=== PATIENT | male | born 1990 | race Caucasian/White ===

== ENCOUNTER 2018-06-29 00:08 | Emergency (ER) | payer BC ==
--- NOTE | 2018-06-29 01:43 | EDM.PDOC ---
ED HPI GENERAL MEDICAL PROBLEM - General Chief Complaint: Lower Extremity Injury/Pain Stated Complaint: FOOT PAIN Time Seen by Provider: 06/29/18 01:14 Source of Information: Reports: Patient, RN Notes Reviewed History Limitations: Reports: No Limitations - History of Present Illness INITIAL COMMENTS - FREE TEXT/NARRATIVE: The patient states that he developed pain in his right foot 06/22/2018 , after he came down on it with his left foot while sleeping. He reports pain to the lateral aspect of the foot, both on the dorsal, as well as plantar side. No prior right foot injury. The patient had expressed concern to the triage nurse that his pain may be due to gout, however, on close discussion, the patient does not actually have a history of gout. The patient does not have a PCP. Right Foot Pain Score (Numeric/FACES): 8 - Related Data Allergies Allergy/AdvReac Type Severity Reaction Status Date / Time No Known Allergies Allergy Verified 06/29/18 00:27 Home Meds: Home Meds . [No Known Home Meds] 06/29/18 [History] Past Medical History - Past Surgical History HEENT Surgical History: Reports: Oral Surgery (wisdom teeth extraction) GI Surgical History: Reports: Appendectomy (2012), Hernia, Inguinal (left x 2 - 1995, 2015) Social & Family History - Family History Family Medical History: Noncontributory - Tobacco Use Smoking Status *Q: Current Every Day Smoker Years of Tobacco use: 10 Packs/Tins Daily: 0.5 Packs/Tins Daily Comment: Down from 1.5 ppd - Caffeine Use Caffeine Use: Reports: None - Alcohol Use Alcohol Use History: Yes Alcohol Use Frequency: Rarely - Recreational Drug Use Recreational Drug Use: No - Living Situation & Occupation Living situation: Reports: Single, Alone Occupation: Employed ([employer]) Review of Systems - Review of Systems Review Of Systems: ROS reveals no pertinent complaints other than HPI. ED EXAM, GENERAL - Physical Exam Exam: See Below Exam Limited By: No Limitations General Appearance: Alert, WD/WN, No Apparent Distress Extremities: Other (No visible abnormality to the right foot, when compared to the left, such as swelling, erythema, ecchymosis, or abrasion. Excellent dorsalis pedis and posterior tibialis pulses bilaterally, and both feet are well -perfused. The patient reports considerable tenderness to palpation to the lateral aspect of his foot, both on the dorsal and plantar aspects.) Course - Vital Signs Last Recorded V/S: Last Vital Signs Temp 36.5 C 06/29/18 00:24 Pulse 91 06/29/18 00:24 Resp 18 06/29/18 00:24 BP 137/89 06/29/18 00:24 Pulse Ox 99 06/29/18 00:24 - Re-Assessments/Exams Free Text/Narrative Re-Assessment/Exam: 06/29/18 01:37 4-view radiographs of the right foot appear to be normal. No fractures or dislocations identified. No arthritic changes noted, either. Formal read per the Radiologist pending. The patient's right foot pain appears to be soft tissue related. I am recommending that he wear supportive shoes whenever possible, elevate and ice his foot as much as possible, and take [id number] ibuprofen. I will refer him to a Marine Plumber. The patient is also concerned that a prior inguinal hernia repair may be " coming loose". I will refer him to Dr. Coelho for evaluation. Departure - Departure Time of Disposition: 01:39 Disposition: Home, Self-Care 01 Condition: Good Clinical Impression: Right foot pain - Discharge Information *PRESCRIPTION DRUG MONITORING PROGRAM REVIEWED*: Not Applicable *COPY OF PRESCRIPTION DRUG MONITORING REPORT IN PATIENT CESIA: Not Applicable Instructions: Foot Pain Referrals: Gamaliel Singh II, DPM [Physician] - Mariel Coelho MD [Physician] - Forms: ED Department Discharge Additional Instructions: You were seen in the emergency room for right foot pain since Wednesday, 2018. Workup in the ER included x-rays of your right foot, which returned normal. No fractures or dislocations, and no arthritic changes, or seen. Based on your history, physical exam, and x-ray, the cause of your right foot pain appears to be due to a soft tissue injury. As discussed, we recommend that you wear supportive shoes whenever possible. Try to elevate and ice your right foot as much as possible, and to take over-the -counter ibuprofen, 2-3 tablets (400-600 mg) every 8 hours, with food, as needed for discomfort. Follow-up with the Marine Plumber Dr. Gamaliel Singh, at the next available appointment. Follow-up with the Surgeon Dr. Mariel Coelho for evaluation of your inguinal hernia. If any other problems, please do not hesitate to return to the ER.
--- NOTE | 2018-06-29 06:52 | CR ---
Right foot: Four views of the right foot were obtained. Comparison: No previous foot exam. No fracture, dislocation or other bony abnormality is seen. Impression: 1. No abnormality is appreciated on right foot exam. Diagnostic code #1
== END 2018-06-29 01:45 | disposition home or self-care (01) ==
LOC: JD.ED 00:08
DX: M79.671 Pain in right foot (principal); F17.210 Nicotine dependence, cigarettes, uncomplicated; Z90.49 Acquired absence of other specified parts of digestive tract; Z98.890 Other specified postprocedural states
CPT/HCPCS: 73630-26-RT; 73630-RT; 99283-25